=== PATIENT | female | born 1950 | race Asian ===

== ENCOUNTER → 2017-10-01 | Outpatient (CLI) | payer OTHER ==
[~2017-10-01] MED LIST: AEC81 PO; AMLO5TAB4 PO; ATEN25TA PO
== END | disposition home or self-care (01) ==
LOC: OIH 14:50
PROVIDERS: ATTEND Internal Medicine
DX: M17.11 Unilateral primary osteoarthritis, right knee (principal)
CPT/HCPCS: 73560

== ENCOUNTER → 2019-10-12 | Outpatient (CLI) | payer OTHER | END | disposition home or self-care (01) | LOC: OIH 13:19 | PROVIDERS: ATTEND Internal Medicine | DX: I10 Essential (primary) hypertension (principal); M47.814 Spondylosis without myelopathy or radiculopathy, thoracic region; I70.0 Atherosclerosis of aorta; M41.84 Other forms of scoliosis, thoracic region | CPT/HCPCS: 71046 ==

== ENCOUNTER → 2022-11-24 | Outpatient (CLI) | payer OTHER | END | disposition home or self-care (01) | LOC: RAH 15:56 | PROVIDERS: ATTEND Internal Medicine | DX: R93.7 Abnormal findings on diagnostic imaging of other parts of musculoskeletal system (principal); R93.89 Abnormal findings on diagnostic imaging of other specified body structures; M17.0 Bilateral primary osteoarthritis of knee; M41.50 Other secondary scoliosis, site unspecified | CPT/HCPCS: 77075 ==

== ENCOUNTER 2024-03-20 08:26 | Emergency (ER) | payer OTHER ==
[~2024-03-20] VITALS: Ht 160 cm; Wt 67.1 kg
[2024-03-20 09:36] LABS: RAPID GROUP A STREP negative (NEGATIVE)
[2024-03-20 09:46] LABS: INFLUENZA TYPE A Negative For Type A (NEGATIVE); INFLUENZA TYPE B Negative For Type B (NEGATIVE)
[2024-03-20 09:47] LABS: SARS-CoV-2, RNA, NAAT NEGATIVE SARS CoV-2 (NEGATIVE)
[2024-03-20] MEDS ORDERED: SOLU-MEDROL 125MG VIAL IVP ONE (10:30)
[2024-03-20] MEDS ORDERED: METH4TAB3 PO (10:48)
[2024-03-20] MEDS ORDERED: BUDE90AE IH (10:48)
[2024-03-20] MEDS ORDERED: BENZ-39 PO (10:48)
[2024-03-20] MEDS: SOLU-MEDROL 125MG VIAL IM ONE (10:52)
[2024-03-20] MEDS ORDERED: ALBUHFA IH (10:53)
[2024-03-20] MEDS: ALBUTEROL 0.083% 2.5 MG/3 ML INH IH ONE (10:57)
[2024-03-20 11:00] VITALS: PULSE 66; RESP 20
[2024-03-20 11:28] VITALS: BP 133/74; PULSE 78; RESP 18; O2SAT 98
== END 2024-03-20 11:29 | disposition home or self-care (01) ==
LOC: EDH 08:26
DX: J20.8 Acute bronchitis due to other specified organisms (principal); J04.0 Acute laryngitis; B97.89 Other viral agents as the cause of diseases classified elsewhere; I10 Essential (primary) hypertension; Z20.822 Contact with and (suspected) exposure to COVID-19; Z79.82 Long term (current) use of aspirin; Z79.899 Other long term (current) drug therapy
CPT/HCPCS: 99284; 87880; 87804 ×2; 87635; 71045; 96372; 94640; J2919